=== PATIENT | female | born 1990 | race Caucasian/White ===

== ENCOUNTER → 2017-11-01 14:43 | Outpatient (CLI) | payer BC, SELFPAY ==
[2017-11-01 16:22] LABS: Free T4 (Free Thyroxine) 1.02 ng/dl (0.76-1.46); Thyroid Stimulating Hormone 1.06 uIU/ml (0.358-3.740)
[2017-11-03 11:16] LABS: Thyroid Peroxidase Antibodies 102 IU/mL (0-34)
[2017-11-03 15:24] LABS: Thyroglobulin Level <1.0 IU/mL (0.0-0.9)
== END ==
PROVIDERS: Visit Provider Otolaryngology
DX: E06.3 Autoimmune thyroiditis (principal)
CPT/HCPCS: 36415; 84439; 84443; 86376; 86800

== ENCOUNTER → 2019-01-02 10:34 | Outpatient (POV) | payer BC, SELFPAY ==
[2019-01-02 13:29] LABS: Free T4 (Free Thyroxine) 1.29 ng/dl (0.76-1.46)
[2019-01-02 14:40] LABS: Thyroid Stimulating Hormone 0.01 uIU/ml (0.358-3.740)
[2019-01-03 11:14] LABS: Thyroid Peroxidase Antibodies 53 IU/mL (0-34)
[2019-01-04 04:25] LABS: Thyroglobulin Level 2.9 IU/mL (0.0-0.9)
== END ==
PROVIDERS: Visit Provider Otolaryngology
DX: E06.3 Autoimmune thyroiditis (principal)
CPT/HCPCS: 36415; 84439; 84443; 86376; 86800

== ENCOUNTER → 2019-10-12 16:10 | Outpatient (CLI) | payer BC, SELFPAY ==
[2019-10-12 19:00] LABS: Free T4 (Free Thyroxine) 1.71 ng/dl (0.78-2.19)
[2019-10-12 19:15] LABS: Thyroid Stimulating Hormone 0.03 uIU/mL (0.465-4.68)
[2019-10-14 11:47] LABS: Thyroid Peroxidase Antibodies 59 IU/mL (0-34)
[2019-10-15 16:15] LABS: Thyroglobulin Level 4.5 IU/mL (0.0-0.9)
== END ==
PROVIDERS: Visit Provider Otolaryngology
DX: E06.3 Autoimmune thyroiditis (principal)
CPT/HCPCS: 36415; 84439; 84443; 86376; 86800

== ENCOUNTER 2019-12-14 15:45 | Emergency (ER) | payer BC, SELFPAY ==
[2019-12-14 15:46] VITALS: BP 128/88; PULSE 67; RESP 17; TEMP 37.2; O2SAT 100; BMI 27.4
--- NOTE | 2019-12-14 15:46 | XR_ITS ---
PROCEDURE: XR CHEST PORTABLE CLINICAL HISTORY: CHEST PRESSURE COMPARISON: No exams were available for comparison FINDINGS: The cardiomediastinal silhouette and pulmonary vascularity are within normal limits. The lungs are clear without infiltrates, suspicious nodules, or pleural effusions. No acute bony abnormalities. IMPRESSION: No acute findings. Dictated by: Kodak Pimentel MD 12/14/2019 16:11 Electronically signed by Kodak Pimentel MD in [place] 12/14/2019 16:11
--- NOTE | 2019-12-14 15:50 | ECG_ITS ---
APPROVED REPORT Exam: Resting ECG HR:57 bpm ECG Measurements Heart Rate 57 AXES CO 134 P 48 QRSd 86 QRS 52 QT 446 T 43 QTc 434 <Conclusion> Sinus bradycardia with marked sinus arrhythmia Late r wave progression Abnormal ECG Electronically signed by : Matt Parker, 12/14/2019 20:15:51
--- NOTE | 2019-12-14 16:03 | CT_ITS ---
PROCEDURE: CT ANGIO CHEST CLINCIAL INDICATION: soa, pressure in chest COMPARISON: XR CHEST PORTABLE from 12/14/2019 TECHNIQUE: IV Contrast: 70ML OPTIRAY 350 Axial images obtained with sagittal and coronal reformats. All CT scans at the facility use one or more dose reduction, viz: automated exposure control, ma/kV adjustment per patient size (including targeted exams where dose is matched to indication, i.e. head), or iterative reconstruction technique. FINDINGS: HEART AND MEDIASTINAL STRUCTURES: No evidence of aortic aneurysm dissection or pulmonary embolus. There is increased soft tissue density within the anterior mediastinum. This most likely is related residual thymic tissue however the borders are rounded anteriorly as opposed to triangle-shaped. Follow-up is suggested to confirm resolution or stability. There are few small nodes in the axilla. LUNGS AND PLEURAL SPACES: Unremarkable. BONY STRUCTURES: No acute bony abnormalities apparent. UPPER ABDOMEN: Unremarkable. ADDITIONAL FINDINGS: No other significant abnormalities. IMPRESSION: 1. No acute finding. No evidence of pulmonary embolus. 2. Soft tissue density within the anterior mediastinum at 3.4 by 2 cm probably related to residual thymic tissue somewhat more prominent than expected with rounded anterior margins. Recommend six-month follow-up to confirm stability. Dictated by: Kodak Pimentel MD 12/14/2019 17:45 Electronically signed by Kodak Pimentel MD in [place] 12/14/2019 17:45
[2019-12-14 16:11] LABS: Basophils % 0.6 % (0.1-2.0); Eosinophils # 0.4 K/mm3 (0.0-0.4); Eosinophils % 4.4 % (0.1-12.0); Hematocrit 38.6 % (37.0-47.0); Hemoglobin 13.7 g/dL (12.2-16.2); Lymphocytes # 3.8 K/mm3 (0.7-4.5); Lymphocytes % 48.2 % (10-50); Mean Corpuscular HGB Conc 35.5 g/dL (31.8-35.4); Mean Corpuscular Hemoglobin 29.9 pg (27.0-31.2); Mean Corpuscular Volume 84.2 fl (81-99); Mean Platelet Volume 8.1 fl (7.4-10.4); Monocytes # 0.3 K/mm3 (0.1-1.0); Monocytes % 3.9 % (1.7-9.3); Neutrophils # 3.4 K/mm3 (1.8-7.8); Neutrophils % 42.9 % (37.0-80.0); Platelet Count 179 K/mm3 (142-424); Red Blood Count 4.59 M/mm3 (4.20-5.40); Red Cell Distribution Width 12.8 % (11.5-17.5)
[2019-12-14 16:44] LABS: Chloride 103 mmol/L (98-107); Sodium 139 mmol/L (136-145)
[2019-12-14 16:45] LABS: Potassium 3.7 mmoL/L (3.5-5.1)
[2019-12-14 16:47] LABS: Blood Urea Nitrogen 16 mg/dl (7-17); Creatinine Clearance Estimated 129 mL/min (50-200); Estimated Glomerular Filt Rate 86 ml/min (>60); GFR (African American) 104 ML/MIN (>60)
[2019-12-14 16:48] LABS: Anion Gap 13.7 mEq/L (5-15); Calcium 9.7 mg/dl (8.4-10.2); Carbon Dioxide 26 mmol/L (22.0-30.0); Glucose 99 mg/dl (74-100)
[2019-12-14 16:52] LABS: HCG Qualitative, Serum Negative (Negative)
[2019-12-14 17:02] LABS: Troponin I < 0.01 ng/ml (0.00-0.034)
[2019-12-14 17:05] LABS: T4 (Thyroxine) 9.1 ug/dl (5.53-11.0)
[2019-12-14 17:19] LABS: Thyroid Stimulating Hormone 0.73 uIU/mL (0.465-4.68)
[2019-12-14 18:07] VITALS: BP 123/89; PULSE 60; O2SAT 98
--- NOTE | 2019-12-14 18:30 | HMH.EDSOB ---
ED Disposition Clinical Impression: Shortness of breath Disposition: Home, Self-Care Condition on Discharge: Good Prescriptions: Azithromycin 250 mg PO DAILY 5 Days #6 tab Transmission Status: Pending to [facility] dexAMETHasone [Dexamethasone] 2 mg PO DAILY 7 Days #10 tab Transmission Status: Pending to [facility] Referrals: Debbie Newby PA [Primary Care Provider] - - Critical Care Critical Care Time: No Attestation: On 12/14/19, the high probability of a clinically significant, sudden or life threatening deterioration of the following system(s) required my full and direct attention, intervention and personal management. The time I documented below is in addition to time spent performing reported procedures but includes the following listed in this critical care notation. Medical Decision Making - Medical Records Medical records reviewed: Yes: I reviewed the patient's medical records. - Prosper Inquiry Pt receiving controlled substance: No Vital Signs: 12/14/19 15:46 12/14/19 18:07 Temperature 99 F Temperature Source Oral Pulse Rate [Right] 67 60 Respiratory Rate 17 Blood Pressure [Right Arm] 128/88 123/89 Blood Pressure Mean [Right Arm] 101 100 Blood Pressure Source [Right Arm] Automatic Cuff Blood Pressure Position [Right Arm] Supine 02 Sat by Pulse Oximetry 100 98 Oxygen Delivery Method Room Air - Lab Data Lab results reviewed: Yes: I reviewed the patient's lab results. Lab Results 12/14/19 16:00: WBC 8.0, RBC 4.59, Hgb 13.7, Hct 38.6, MCV 84.2, MCH 29.9, MCHC 35.5 H, RDW 12.8, Plt Count 179, MPV 8.1, Neut % (Auto) 42.9, Lymph % (Auto) 48.2, [place] % (Auto) 3.9, Eos % (Auto) 4.4, Baso % (Auto) 0.6, Neut # (Auto) 3.4, Lymph # (Auto) 3.8, [place] # (Auto) 0.3, Eos # (Auto) 0.4, Baso # (Auto) 0.0 12/14/19 16:33: Sodium 139, Potassium 3.7, Chloride 103, Carbon Dioxide 26, Anion Gap 13.7, BUN 16, Creatinine 0.80, Estimated Creat Clear 129, Estimated GFR 86, Est GFR ( Amer) 104, Glucose 99, Calcium 9.7, Troponin I < 0.01, TSH 0.73, Thyroxine (T4) 9.1 12/14/19 16:33: Serum HCG, Qual Negative Result diagrams: 12/14/19 16:00 12/14/19 16:33 Orders (Tests/Meds): ORDERS Category Date Time Status SARS-CoV-2, KARINA ([place]) Stat Lab 12/14/19 16:33 Received Troponin I Q3H Lab 12/14/19 19:00 Ordered Troponin I Q3H Lab 12/14/19 22:00 Ordered - CT Data CT Scan: Chest Time Received: 18:[address] Reviewed: Yes: I have viewed the radiologist's interpretation Preliminary Findings: Normal/NAD - ECG Data Tracing #1 I reviewed this ECG and interpreted as documented below: Normal Sinus Rhythm: Yes Resp/SOB HPI - General Chief Complaint: Shortness of Breath/Dyspnea Stated Complaint: CHEST PRESSURE Time Seen by Provider: 12/14/19 18:00 Mode of Arrival: Ambulatory Source of Information: Patient Limitations: No Limitations Description of Symptoms (Recalled from ER Triage Doc. by RN): Pt c/o chest pressure and soa that has been going for 2 days, denies fever. - History of Present Illness 29-year-old female presents the emergency department complaint of some shortness of breath that started about 2 days ago. Patient denies any fevers or coughs. But she does say she has a little bit of chest pain associated with the shortness of breath. She states that the pain is there with deep inhalations and increasing intrathoracic pressure. Patient states she is been out in public but has not been around any sick people that she realizes. Patient denies any loss of smell or taste she denies any arthralgias or myalgias and she denies any cough with the shortness of breath. - Related Data Home Medications Medication Instructions Recorded Confirmed levothyroxine 175 mcg tablet 175 mcg PO ONCE 11/21/17 Previous Rx's Medication Instructions Recorded Azithromycin [Z-Michel 250mg Tab*] 250 mg PO UD DOSE PK #6 tab 08/21/19 Azithromycin 250 mg PO DAILY 5 Days #6
[2019-12-14 18:47] VITALS: BP 116/85; PULSE 69; RESP 16; TEMP 36.8; O2SAT 96
[2019-12-16 08:31] LABS: Covid-19 Nasal PCR Sendout UK Not Detected
== END 2019-12-14 18:49 | disposition home or self-care (01) ==
PROVIDERS: Emergency Provider Family Medicine; PCP Physician Assistant
DX: R07.9 Chest pain, unspecified (principal); R06.02 Shortness of breath; Z88.2 Allergy status to sulfonamides
CPT/HCPCS: 71045; 71275; 80048; 84436; 84443; 84484; 84703; 85025; 93005; 96374; 99283; 99284; Q9967; U0003

== ENCOUNTER 2020-03-25 18:13 | Emergency (ER) | payer BC, SELFPAY ==
[2020-03-25 19:08] VITALS: BP 126/87; PULSE 66; RESP 18; TEMP 36.7; O2SAT 99; BMI 30.4
[2020-03-25 19:10] LABS: Apearance,Urine Clear (Clear); Color,Urine Yellow (Yellow); Protein,Urine Negative (Negative)
[2020-03-25 19:11] LABS: Bilirubin,Urine Negative (Negative); Blood, Urine Trace (Negative); Glucose,Urine (UA) Negative (Negative); Ketones,Urine Negative (Negative); UTC Leukocyte Esterase,Urine Trace (Negative); UTC Nitrate,Urine Negative (Negative); Urobilinogen,Urine 0.2 EU/dl (0.2)
--- NOTE | 2020-03-25 19:15 | HMH.EDUTC ---
[facility] Disposition Clinical Impression: UTI (urinary tract infection) Qualifiers: Urinary tract infection type: site unspecified Hematuria presence: with hematuria Qualified Code(s): N39.0 - Urinary tract infection, site not specified; R31.9 - Hematuria, unspecified Disposition: Home, Self-Care Condition on Discharge: Good Instructions: Urinary Tract Infection, DI for Urinary Tract Infection (UTI), Cephalexin, Phenazopyridine Additional Instructions: *Increase fluids. Water not Soda or Tea *Start antibiotic immediately and be sure to take as ordered for the FULL length of time although you should start to see improvement over the next 48 hours *Pyridium as needed Remember this medication will turn your urine Lenore. This is normal but it will stain what ever it gets on *You should not use Pyridium for more than 48 hours. If so , follow up with your primary physician to review urine culture and ensure that antibiotic is adequate for infection *Be SURE to follow up anytime for new or worsening symptoms with your family doctor. AND in 48 hours for urine culture results with your family doctor, if you do not have a doctor then you may call back to the [facility] for urine culture results and further treatment. We do recommend that you choose and establish care with a Primary Care Physician. AND follow up with them in 10-14 days to repeat UA to ensure infection is resolved and blood no longer present *Be sure to let your PCP know that we sent urine cultures from the [facility] so they can follow up to ensure that you area the on the correct antibiotic Call your doctor office and make appointment for 48 hours (2 days from today) to follow up and get the results of your urine culture and further treatment Return if needed Straight to ER if any life threatening symptoms Prescriptions: cephALEXin [cephALEXin 500mg capsule*] 500 mg PO BID 10 Days #20 cap Transmission Status: Pending to [facility] Phenazopyridine HCl [Pyridium 200mg Tablet] 200 pow PO TID #6 tab Transmission Status: Pending to [facility] Referrals: Debbie Newby PA [Primary Care Provider] - As needed Time of Disposition: 19:26 Medical Decision Making - Prosper Inquiry Pt receiving controlled substance: No Prosper was queried for this patient: No Vital Signs: 03/25/20 19:08 Temperature 98.1 F Temperature Source Oral Pulse Rate [Radial] 66 Respiratory Rate 18 Blood Pressure [Right Arm] 126/87 Blood Pressure Mean [Right Arm] 100 Blood Pressure Source [Right Arm] Automatic Cuff Blood Pressure Position [Right Arm] Sitting 02 Sat by Pulse Oximetry 99 Oxygen Delivery Method Room Air - Lab Data Lab results reviewed: Yes: I reviewed the patient's lab results. Lab Results 03/25/20 19:08: Urine Color Yellow, Urine Appearance Clear, Urine pH 8.0, Ur Specific [place] 1.020, Urine Protein Negative, Urine Glucose (UA) Negative, Urine Ketones Negative, Urine Blood Trace, Urine Nitrate Negative, Urine Bilirubin Negative, Urine Urobilinogen 0.2, Ur Leukocyte Esterase Trace Orders (Tests/Meds): ORDERS Category Date Time Status Urine Culture Routine Micro 03/25/20 19:00 Received Medical Decision Narrative: denies [facility] HPI - General Stated complaint: Blood in urine, stabbing pain Time Seen by Provider: 03/25/20 19:15 Mode of Arrival: Ambulatory Source of Information: Patient Limitations: No Limitations Description of Symptoms (Recalled from Triage Doc. by RN): possible uti HEENT Symptoms (Recalled from RN notes): No Resp Symptoms (Recalled from RN notes): No Skin Symptoms (Recalled from RN notes): No MS Symptoms (Recalled from RN notes): No Functional Status (Recalled from RN notes): wnl - History of Present Illness Provider Complaint: Patient states that she thinks she may have a UTI States that she has been having burning with urination and feeling of urgency and frequency States that it has continued to get worse over the las
[2020-03-25 19:40] VITALS: BP 126/87; PULSE 66; RESP 18; TEMP 36.7; O2SAT 99
== END 2020-03-25 19:41 | disposition home or self-care (01) ==
PROVIDERS: Emergency Provider Nurse Practitioner; PCP Physician Assistant
DX: N30.01 Acute cystitis with hematuria (principal); Z88.7 Allergy status to serum and vaccine
CPT/HCPCS: 81003; 87086; 99201

== ENCOUNTER → 2020-03-27 14:22 | Outpatient (CLI) | payer BC, SELFPAY ==
[2020-03-27 16:05] LABS: Free T4 (Free Thyroxine) 0.98 ng/dl (0.78-2.19)
[2020-03-27 16:20] LABS: Thyroid Stimulating Hormone 0.36 uIU/mL (0.465-4.68)
[2020-03-29 17:48] LABS: Thyroid Peroxidase Antibodies 32 IU/mL (0-34)
[2020-03-31 18:09] LABS: Thyroglobulin Level 2.5 IU/mL (0.0-0.9)
== END ==
PROVIDERS: Visit Provider Otolaryngology
DX: E06.3 Autoimmune thyroiditis (principal)
CPT/HCPCS: 36415; 84439; 84443; 86376; 86800

== ENCOUNTER → 2020-10-31 13:42 | Outpatient (CLI) | payer BC, SELFPAY ==
--- NOTE | 2020-10-31 13:47 | XR_ITS ---
PROCEDURE: XR ANKLE LT MIN 3V CLINICAL INDICATION: LT ANKLE PAIN,UNSPECIFIED CHRONOCITY COMPARISON: No exams were available for comparison FINDINGS: No fracture or dislocation. No lytic or blastic change. There is normal mineralization. The joint spaces are well-preserved. No significant degenerative/arthritic changes. No erosive changes evident. Other findings:None. IMPRESSION: No acute findings. Dictated by: Kodak Pimentel MD 10/31/2020 14:04 Kodak Pimentel MD in [place] 10/31/2020 14:04
== END ==
PROVIDERS: PCP Physician Assistant; Visit Provider Nurse Practitioner
DX: M25.572 Pain in left ankle and joints of left foot (principal)
CPT/HCPCS: 73610

== ENCOUNTER → 2021-01-01 12:25 | Outpatient (CLI) | payer BC, SELFPAY ==
[2021-01-02 15:13] LABS: Thyroglobulin Level <1.0 IU/mL (0.0-0.9)
== END ==
PROVIDERS: Visit Provider Otolaryngology
DX: E06.3 Autoimmune thyroiditis (principal)
CPT/HCPCS: 36415; 86800

== ENCOUNTER → 2021-02-17 14:40 | Outpatient (CLI) | payer BC, SELFPAY ==
[2021-02-17 17:08] LABS: Free T4 (Free Thyroxine) 0.54 ng/dl (0.78-2.19)
[2021-02-19 10:21] LABS: Thyroid Peroxidase Antibodies 30 IU/mL (0-34)
[2021-02-19 21:52] LABS: Thyroglobulin Level 2.2 IU/mL (0.0-0.9)
== END ==
PROVIDERS: Visit Provider Otolaryngology
DX: E06.3 Autoimmune thyroiditis (principal)
CPT/HCPCS: 36415; 84439; 84443; 86376; 86800

== ENCOUNTER → 2021-08-13 16:55 | Outpatient (CLI) | payer BC, SELFPAY ==
[2021-08-13 18:18] LABS: Free T4 (Free Thyroxine) 1.23 ng/dl (0.78-2.19)
[2021-08-13 18:32] LABS: Thyroid Stimulating Hormone 0.07 uIU/mL (0.465-4.68)
== END ==
PROVIDERS: Visit Provider Physician Assistant
DX: E03.9 Hypothyroidism, unspecified (principal)
CPT/HCPCS: 36415; 84439; 84443

== ENCOUNTER 2022-07-23 15:48 | Emergency (ER) | payer BC, SELFPAY ==
--- NOTE | 2022-07-23 15:51 | EXP.UTC ---
Discharge Plan Disposition Patient Disposition: Home, Self-Care Condition: Good Prescriptions Prescriptions: New ofloxacin 0.3 % drops See Rx Instructions .ROUTE .COMPLEX Qty: 5 0RF Rx Instructions: put 2 drps into affected eye every 2 h x 2 days, then 1 drp 4 times/day days 3-7 No Action levothyroxine 175 mcg tablet 175 mcg PO ONCE venlafaxine 75 mg capsule,extended release 24hr 75 mg PO DAILY Label Comments: TAKE 1 CAPSULE BY MOUTH ONCE DAILY Referrals Follow up/Referrals: Debbie Newby PA [Primary Care Provider] - See instructions Activity Restrictions/Add. Instructions Additional Instructions/Restrictions: Use the eye drops as directed. Strict hand washing in the house hold, because conjunctivitis is very contagious. Follow up with your regular doctor. GO TO THE ER FOR ANY WORSENING SYMPTOMS OR CONCERNS Clinical Impressions Clinical Impression: Conjunctivitis of right eye Instructions Patient Instructions: How to Instill Eye Drops Discharge ED Provider: Lino Britton [facility] General Stated complaint: poss pink eye Time Seen by Provider: 07/23/22 15:51 History of Present Illness Provider Complaint: She states that for the past 2 days she has had right eye irritation, redness and matting with yellowish drainage. Related Data Home Medications Medication Instructions Recorded Confirmed levothyroxine 175 mcg tablet 175 mcg PO ONCE . 11/21/17 07/23/22 venlafaxine 75 mg capsule,extended 75 mg PO DAILY . 07/23/22 07/23/22 release 24 hr Previous Rx's Medication Instructions Recorded ofloxacin 0.3 % eye drops See Rx Instructions ophthalmic 07/23/22 (eye) .COMPLEX #5 mL Allergies Allergy/AdvReac Type Severity Reaction Status Date / Time NSAIDS (Non-Steroidal Allergy Severe THROAT Verified 07/23/22 16:07 Anti-Inflamma SWELLING [NSAIDS (NON-STEROIDAL ANTI-INFLAMMA] [facility] Disclaimer: The information contained in this section may have been updated after the patient was seen, as this information can be updated by other users. Social History Smoking Status: Never smoker alcohol intake: never current occupational status: other Travel in the last 8 weeks: None ROS Obtained: Yes All systems reviewed & no additional complaints except as documented Constitutional Constitutional: Denies chills and Denies fever(s) Eyes Eyes: Reports eye discharge ENT Ears, Nose, Mouth, and Throat: Denies dizziness, Denies otalgia and Denies sore throat Cardiovascular Cardiovascular: Denies chest pain Respiratory Respiratory: Denies shortness of breath, Denies chest congestion, Denies cough, Denies stridor and Denies wheezing Gastrointestinal Gastrointestingal: Denies nausea or vomiting Musculoskeletal Musculoskeletal: Reports system reviewed and no additional complaints, except as documented and Denies arthralgias Integumentary/Breasts Skin/Breast: Denies rash Neurologic Neurologic: Denies dizziness and Denies paresthesias Allergic/Immunologic Allergic/Immunologic: Denies wheezing Physical Exam General General appearance: alert and in no apparent distress Head Head exam: atraumatic, normocephalic and normal inspection Eye Eye exam: Present PERRL, EOMI, conjunctival redness, conjunctival injection and discharge ENT ENT exam: Present normal exam, normal oropharynx, mucous membranes moist, TM's normal bilaterally and normal external ear exam Neck Neck exam: Present normal inspection, full ROM and trachea midline; Absent meningismus or lymphadenopathy Chest Chest inspection: Present normal inspection and symmetric chest wall rise; Absent tenderness Respiratory Respiratory exam: Present normal lung sounds bilaterally; Absent respiratory distress Cardiovascular Cardiovascular exam: Present regular rate and normal rhythm; Absent JVD Abdominal Exam Abdominal exam: Present soft and nor
[2022-07-23 15:55] VITALS: BP 134/77; PULSE 96; RESP 20; TEMP 36.9; O2SAT 98; BMI 31.9
[2022-07-23 16:36] VITALS: BP 134/77; PULSE 96; RESP 20; TEMP 36.9; O2SAT 98
== END 2022-07-23 16:35 | disposition home or self-care (01) ==
PROVIDERS: Emergency Provider Nurse Practitioner Family; PCP Physician Assistant
DX: H10.9 Unspecified conjunctivitis (principal)
CPT/HCPCS: 99212; 99213; G0463

== ENCOUNTER 2023-03-17 08:35 | Emergency (ER) | payer BC, SELFPAY ==
[2023-03-17 08:36] VITALS: BP 130/75; PULSE 72; RESP 18; TEMP 36.9; O2SAT 98; BMI 32.1
[2023-03-17 09:02] LABS: Apearance,Urine Cloudy (Clear); Color,Urine Yellow (Yellow)
[2023-03-17 09:03] LABS: Bilirubin,Urine Negative (Negative); Blood, Urine Trace (Negative); Glucose,Urine (UA) Negative (Negative); Ketones,Urine Negative (Negative); Protein,Urine Negative (Negative)
[2023-03-17 09:05] LABS: UTC Leukocyte Esterase,Urine 1+ (Negative); UTC Nitrate,Urine Negative (Negative); Urobilinogen,Urine 1 EU/dl (0.2)
--- NOTE | 2023-03-17 09:17 | EXP.UTC ---
Discharge Plan Disposition Patient Disposition: Home, Self-Care Condition: Good Prescriptions Prescriptions: New nitrofurantoin monohyd/m-cryst [Macrobid] 100 mg capsule 100 mg PO Q12H 5 Days Qty: 10 0RF Rx Instructions: must administer with a meal/food phenazopyridine [Pyridium] 200 mg tablet 200 mg PO Q8H 2 Days Qty: 6 0RF No Action levothyroxine 175 mcg tablet 175 mcg PO ONCE venlafaxine 75 mg capsule,extended release 24hr 75 mg PO DAILY Patient Comments: TAKE 1 CAPSULE BY MOUTH ONCE DAILY ofloxacin 0.3 % drops See Rx Instructions .ROUTE .COMPLEX Qty: 5 0RF Rx Instructions: put 2 drps into affected eye every 2 h x 2 days, then 1 drp 4 times/day days 3-7 Referrals Follow up/Referrals: Debbie Newby PA [Primary Care Provider] - See instructions Activity Restrictions/Add. Instructions Additional Instructions/Restrictions: *Increase fluids. Water not Soda or Tea *Start antibiotic immediately and be sure to take as ordered for the FULL length of time although you should start to see improvement over the next 48 hours *Pyridium as needed Remember this medication will turn your urine . This is normal but it will stain what ever it gets on *You should not use Pyridium for more than 48 hours. If so , follow up with your primary physician to review urine culture and ensure that antibiotic is adequate for infection *Be SURE to follow up anytime for new or worsening symptoms with your family doctor. AND in 48 hours for urine culture results with your family doctor, if you do not have a doctor then you may call back to the [facility] for urine culture results and further treatment. We do recommend that you choose and establish care with a Primary Care Physician. ?AND follow up with them ?in 10-14 days to repeat UA to ensure infection is resolved and blood no longer present *Be sure to let your PCP know that we sent urine cultures from the [facility] so they can follow up to ensure that you area the on the correct antibiotic Call your doctor office and make appointment for 48 hours (2 days from today) ?to follow up and get the results of your urine culture and further treatment Clinical Impressions Clinical Impression: UTI (urinary tract infection) Qualifiers: Urinary tract infection type: site unspecified Hematuria presence: with hematuria Qualified Code(s): N39.0 - Urinary tract infection, site not specified; R31.9 - Hematuria, unspecified Instructions Patient Instructions: DI for Urinary Tract Infection (UTI), Nitrofurantoin, Phenazopyridine Discharge ED Provider: Lucy Rojas [facility] [place] [place] General Stated complaint: suspected uti, painful urination Mode of Arrival: Ambulatory Source of Information: Patient Limitations: No Limitations Time Seen by Provider: 03/17/23 09:18 Description of Symptoms (Recalled from Triage Doc. by RN): Patient reports pain, burning and pressure with urination since yesterday. HEENT Symptoms (Recalled from RN notes): No Resp Symptoms (Recalled from RN notes): No Skin Symptoms (Recalled from RN notes): No MS Symptoms (Recalled from RN notes): No Functional Status (Recalled from RN notes): wnl History of Present Illness Provider Complaint: Patient states that she started yesterday with burning with urination and feeling of urgency and frequency like she has had before with UTI States that she was up and down most of the night with it so this morning she came in to get it checked Related Data Home Medications Medication Instructions Recorded Confirmed levothyroxine 175 mcg tablet 175 mcg PO ONCE . 11/21/17 07/23/22 venlafaxine 75 mg capsule,extended 75 mg PO DAILY . 07/23/22 07/23/22 release 24 hr Previous Rx's Medication Instructions Recorded ofloxacin 0.3 % eye drops See Rx Instructions ophthalmic 07/23/22 (eye) .COMPLEX #5 mL nitrofurantoin 100 mg PO Q12H 5 days #10 caps 03/17/23 monohydrate/macrocrystals 100 mg capsule (Macrobid) phe
[2023-03-17 09:25] VITALS: BP 130/75; PULSE 70; RESP 18; TEMP 36.9; O2SAT 98
== END 2023-03-17 09:26 | disposition home or self-care (01) ==
PROVIDERS: Emergency Provider Nurse Practitioner; PCP Physician Assistant
DX: N39.0 Urinary tract infection, site not specified (principal); R31.9 Hematuria, unspecified
CPT/HCPCS: 81003; 87086; 99212; 99214; G0463

== ENCOUNTER 2023-06-09 14:50 | Outpatient (CLI) | payer BC, SELFPAY ==
[2023-06-09 15:24] LABS: Basophils # 0.1 K/mm3 (0-0.2); Basophils % 0.4 % (0.1-2.0); Eosinophils # 0.1 K/mm3 (0.0-0.4); Eosinophils % 0.4 % (0.1-12.0); Hematocrit 44.5 % (37.0-47.0); Hemoglobin 15.1 g/dL (12.2-16.2); Lymphocytes # 2.2 K/mm3 (0.7-4.5); Lymphocytes % 17.8 % (10-50); Mean Corpuscular HGB Conc 33.9 g/dL (31.8-35.4); Mean Corpuscular Hemoglobin 29.6 pg (27.0-31.2); Mean Corpuscular Volume 87.4 fl (81-99); Monocytes # 0.5 K/mm3 (0.1-1.0); Monocytes % 3.9 % (1.7-9.3); Neutrophils # 9.7 K/mm3 (1.8-7.8); Neutrophils % 77.5 % (37.0-80.0); Platelet Count 339 K/mm3 (142-424); Red Blood Count 5.09 M/mm3 (4.20-5.40); Red Cell Distribution Width 13.5 % (11.5-17.5); White Blood Count 12.5 K/mm3 (4.8-10.8)
[2023-06-09 16:12] LABS: Chloride 102 mmol/L (98-107); Potassium 4.4 mmoL/L (3.5-5.1); Sodium 137 mmol/L (136-145)
[2023-06-09 16:14] LABS: Blood Urea Nitrogen 15 mg/dl (7-17)
[2023-06-09 16:15] LABS: Alanine Aminotransferase 56 U/L (12-78); Albumin Level 5.2 g/dl (3.5-5.0); Albumin/Globulin Ratio 1.4 (1.1-1.8); Alkaline Phosphatase 67 U/L (38-126); Anion Gap 16.4 mEq/L (5-15); Aspartate Amino Transferase 57 U/L (14-36); Bilirubin,Total 0.9 mg/dl (0.2-1.3); Calcium 10.3 mg/dl (8.4-10.2); Carbon Dioxide 23 mmol/L (22.0-30.0); Estimated Glomerular Filt Rate 65 ml/min (>60); GFR (African American) 79 ML/MIN (>60); Globulin 3.7 g/dL (1.3-3.2); Glucose 92 mg/dl (74-100); Total Protein,Serum 8.9 g/dl (6.3-8.2)
[2023-06-09 16:24] LABS: Erythrocyte Sedimentation Rate 6 mm/hr (0-20)
[2023-06-09 16:32] LABS: Free T4 (Free Thyroxine) 0.15 ng/dl (0.78-2.19)
== END 2023-06-09 23:59 ==
LOC: LAB 14:51
PROVIDERS: PCP Physician Assistant; Visit Provider Physician Assistant
DX: E03.9 Hypothyroidism, unspecified (principal); R51.9 Headache, unspecified
CPT/HCPCS: 36415; 80053; 84439; 84443; 85025; 85651

== ENCOUNTER 2023-06-14 22:23 | Emergency (ER) | payer BC, SELFPAY ==
[2023-06-14 22:24] VITALS: BP 137/92; PULSE 63; RESP 24; TEMP 36.4; O2SAT 99; BMI 32.5
--- NOTE | 2023-06-14 22:32 | ECG_ITS ---
APPROVED REPORT Exam: Resting ECG HR:70 bpm ECG Measurements Heart Rate 70 AXES OH 150 P 51 QRSd 94 QRS 62 QT 409 T 5 QTc 430 Conclusion SINUS RHYTHM NONSPECIFIC ST & T-WAVE ABNORMALITY BORDERLINE ECG UNCONFIRMED REPORT Electronically signed by : Matt Parker MD 06/15/2023 08:35:53
[2023-06-14 23:00] VITALS: BP 135/79; PULSE 61; RESP 20; O2SAT 98
[2023-06-14] MEDS: LORazepam 2MG/ML VIAL 0.5 MG IV (23:00)
[2023-06-14] MEDS: 0.9 % SODIUM CHLORIDE 1000ML 1,000 ML 999 ML IV (23:00)
--- NOTE | 2023-06-14 23:03 | ED_ITS ---
Discharge Plan Disposition Patient Disposition: Home, Self-Care Prescriptions Prescriptions: No Action levothyroxine 175 mcg tablet 175 mcg PO ONCE Referrals Follow up/Referrals: Debbie Newby PA [Primary Care Provider] - See instructions Activity Restrictions/Add. Instructions Additional Instructions/Restrictions: Please follow-up with your primary care provider. [facility] develop any new or worsening symptoms or become concerned for your health. Clinical Impressions Clinical Impression: Abnormal laboratory test result, Feeling tired Discharge ED Provider: Isaak Nowak General Adult HPI <Isaak Nowak MD - Last Filed: 06/14/23 23:08> General Chief complaint: Recheck/Abnormal Lab/Rx Stated complaint: RAMAN, Lethargic, thyroid level 270 Time Seen by Provider: 06/14/23 22:26 Mode of Arrival: Wheelchair Source of Information: Patient Limitations: No Limitations Description of Symptoms (Recalled from ER Triage Doc. by RN): Patient has been off her Synthriod for about 6 weeks, started back on it 4-5 days ago. Patient concerned that her TSH was elevated and she has been having headaches and generally not feeling well. History of Present Illness HPI narrative: 32-year-old female history of hypothyroidism presenting with multiple complaints. Patient states that she stopped taking her thyroid medication about 6 weeks prior. Started taking it about 4 days prior to this visit. Saw her family doctor and TSH was 270, T4 was low at 0.15. They sent these results to a family member who is in medicine and they were concerned that thyroid studies that high may kill her, so they told her to come to the emergency department. Patient states that she feels like her neck is more swollen than usual, denies meningismus, fevers or chills. She has been breaking out in cold sweats, but no objective fevers measured. No lower extremity edema. No confusion, but patient does state that she has been having memory issues and migraines on the right side of her head. Has not taken any medications for these. Related Data Home Medications Medication Instructions Recorded Confirmed levothyroxine 175 mcg tablet 175 mcg PO ONCE . 11/21/17 06/14/23 Allergies Allergy/AdvReac Type Severity Reaction Status Date / Time NSAIDS (Non-Steroidal Allergy Severe THROAT Verified 07/23/22 16:07 Anti-Inflamma SWELLING [NSAIDS (NON-STEROIDAL ANTI-INFLAMMA] PFSH <Isaak Nowak MD - Last Filed: 06/14/23 23:08> [facility] Disclaimer: The information contained in this section may have been updated after the patient was seen, as this information can be updated by other users. Social History (Updated 07/23/22 @ 20:11 by Lino Britton APRN) Smoking Status: Never smoker alcohol intake: never current occupational status: other Travel in the last 8 weeks: None <Isaak Nowak MD - Last Filed: 06/14/23 23:08> ROS Obtained: Yes All systems reviewed & no additional complaints except as documented Physical Exam <Isaak Nowak MD - Last Filed: 06/14/23 23:08> General General appearance: alert, in no apparent distress and anxious Head Head exam: atraumatic and normocephalic Eye Eye exam: Present normal appearance, PERRL and EOMI ENT ENT exam: Present mucous membranes moist Neck Neck exam: Present normal inspection, full ROM and trachea midline Respiratory Respiratory exam: Present normal lung sounds bilaterally; Absent respiratory distress, wheezes, stridor, accessory muscle use or prolonged expiratory phase Cardiovascular Cardiovascular exam: Present regular rate and normal rhythm Abdominal Exam Abdominal exam: Present soft; Absent distention, tenderness, guarding, rebound or rigidity Extremities Exam Extremities exam: Absent edema Neurological Exam Neurological exam: Present alert, oriented X3, CN II-XII intact and normal gait; Absent motor sensory deficit Psychiatric Psychiatric exam: Present anxious Skin Skin exam: Present warm, dry and diaphoresis; Absent erythema Medical Decision Making <Isaak Nowak MD - Last Filed: 06/14/23 23:08> Medical Records Medical records reviewed: Yes I reviewed the patient's medical records. [place] Inquiry Pt receiving controlled substance: No [place] was queried for this patient: No Vital Signs: 06/14/23 22:24 06/14/23 23:00 06/14/23 23:31 Temperature 97.6 F Temperature Source Oral Pulse Rate 61 64 Pulse Rate [Radial] 63 Respiratory Rate 24 20 18 Blood Pressure 135/79 108/57 L Blood Pressure [Left Arm] 137/92 H Blood Pressure Mean 97 74 Blood Pressure Mean [Left Arm] 107 Blood Pressure Source [Left Arm] Automatic Cuff Blood Pressure Position [Left Arm] Sitting 02 Sat by Pulse Oximetry 99 98 98 Oxygen Delivery Method Room Air Room Air Room Air 06/15/23 00:01 06/15/23 00:30 06/15/23 01:01 Temperature Temperature Source Pulse Rate 54 L 55 L 44 L Pulse Rate [Radial] Respiratory Rate 12 13 15 Blood Pressure 99/58 L 105/68 L 87/48 L Blood Pressure [Left Arm] Blood Pressure Mean 61 Blood Pressure Mean [Left Arm] Blood Pressure Source [Left Arm] Blood Pressure Position [Left Arm] 02 Sat by Pulse Oximetry 95 97 96 Oxygen Delivery Method Room Air Room Air Room Air 06/15/23 01:10 Temperature Temperature Source Pulse Rate 46 L Pulse Rate [Radial] Respiratory Rate 17 Blood Pressure 103/56 L Blood Pressure [Left Arm] Blood Pressure Mean 71 Blood Pressure Mean [Left Arm] Blood Pressure Source [Left Arm] Blood Pressure Position [Left Arm] 02 Sat by Pulse Oximetry 97 Oxygen Delivery Method Room Air Lab Data Lab Results 06/14/23 22:40: WBC 13.8 H, RBC 5.35, Hgb 15.9, Hct 47.1 H, MCV 88.0, MCH 29.6, MCHC 33.6, RDW 13.7, Plt Count 361, MPV 8.7, Neut % (Auto) 66.3, Lymph % (Auto) 27.7, [place] % (Auto) 4.1, Eos % (Auto) 1.1, Baso % (Auto) 0.8, Neut # (Auto) 9.2 H, Lymph # (Auto) 3.8, [place] # (Auto) 0.6, Eos # (Auto) 0.2, Baso # (Auto) 0.1, Sodium 139, Potassium 4.6, Chloride 101, Carbon Dioxide 24, Anion Gap 18.6 H, BUN 20 H, Creatinine 1.00, Estimated Creat Clear 123, Estimated GFR 65, Est GFR ( Amer) 79, Glucose 113 H, Calcium 10.1, Total Bilirubin 0.6, AST 62 H, ALT 58, Alkaline Phosphatase 58, Troponin I < 0.01, NT-Pro-B Natriuret Pep 87.4, Total Protein 9.7 H, Albumin 5.3 H, Globulin 4.4 H, Albumin/Globulin Ratio 1.2, TSH 168.00 H, Thyroxine (T4) 6.1, HCG, Quant < 2 06/14/23 23:46: Urine Color Yellow, Urine Appearance Clear, Urine pH 7.0, Ur Specific [place] 1.010, Urine Protein Negative, Urine Glucose (UA) Negative, Urine Ketones Negative, Urine Blood Negative, Urine Nitrate Negative, Urine Bilirubin Negative, Urine Urobilinogen 0.2, Ur Leukocyte Esterase 1+ A, Urine RBC None, Urine WBC 3-5, Ur Squamous Epith Cells 10-20, Urine Bacteria None 06/14/23 22:40 06/14/23 22:40 Orders (Tests/Meds): ED MEDICATIONS Generic Name Dose Route Start Last Admin Trade Name Freq PRN Reason Stop Dose Admin Sodium Chloride 10 ml 06/14/23 22:53 Sodium Chloride 0.9% 10ml Vial IV 07/14/23 22:52 NEEDED PRN to Dilute Lorazepam inj Discontinued Medications Generic Name Dose Route Start Last Admin Trade Name Freq PRN Reason Stop Dose Admin Sodium Chloride 1,000 mls @ 999 mls/hr 06/14/23 22:53 06/14/23 23:00 Sod Chlor 0.9% 1000ml Bag IV 06/14/23 23:53 999 mls/hr .Q1H1M ONE Administration Lorazepam 0.5 mg 06/14/23 22:53 06/14/23 23:00 Lorazepam 2mg/Ml Vial IV 06/14/23 22:54 0.5 mg ONCE ONE Administration ORDERS Category Date Time Status Brain Natriuretic Peptide Stat Lab 06/14/23 22:40 Completed Complete Blood Count Auto Diff Stat Lab 06/14/23 22:40 Completed Comprehensive Metabolic Panel Stat Lab 06/14/23 22:40 Completed HCG,Quantitative Stat Lab 06/14/23 22:40 Completed Rapid PCR Covid and Flu A/B Stat Lab 06/14/23 23:07 Ordered T4 (Thyroxine) Stat Lab 06/14/23 22:40 Completed TSH [Thyroid Stimulating Hormone] Stat Lab 06/14/23 22:40 Completed Troponin I Q3H Lab 06/15/23 02:00 Ordered Troponin I Q3H Lab 06/15/23 05:00 Ordered Troponin I Stat Lab 06/14/23 22:40 Completed Urinalysis and Microscopic Stat Lab 06/14/23 23:46 Completed Urine Culture Stat Micro 06/14/23 23:46 Received Medical Decision Narrative: 32-year-old female history of hypothyroidism presenting with multiple complaints. Patient states that she stopped taking her thyroid medication about 6 weeks prior. Started taking it about 4 days prior to this visit. Saw her family doctor and TSH was 270, T4 was low at 0.15. They sent these results to a family member who is in medicine and they were concerned that thyroid studies that high may kill her, so they told her to come to the emergency department. Patient states that she feels like her neck is more swollen than usual, denies meningismus, fevers or chills. She has been breaking out in cold sweats, but no objective fevers measured. No lower extremity edema. No confusion, but patient does state that she has been having memory issues and migraines on the right side of her head. Has not taken any medications for these. History was obtained via conversation with patient and . On arrival, patient hemodynamically stable, alert, oriented x4, appropriate, GCS 15, moving all extremities spontaneously, pupils equal and reactive to light. Full physical exam performed and significant for anxious woman who is in no acute distress. Nontachycardic, nontachypneic. Afebrile. Patient is diaphoretic and tremulous, but states this is similar for her anxiety and panic attacks. Lungs clear to auscultation bilaterally without focal breath sounds, cardiac exam otherwise normal. Neurologically intact. Differential includes anxiety, intoxication, withdrawal, thyrotoxicosis, viral syndrome, metabolic, endocrinologic, among others. Patient was given fluid bolus, 0.5 mg Ativan for symptomatic management and correction of underlying abnormalities. Laboratory workup pending at time of handoff to oncoming physician. <Pierre Lopez MD - Last Filed: 06/15/23 01:23> Vital Signs: 06/14/23 22:24 06/14/23 23:00 06/14/23 23:31 Temperature 97.6 F Temperature Source Oral Pulse Rate 61 64 Pulse Rate [Radial] 63 Respiratory Rate 24 20 18 Blood Pressure 135/79 108/57 L Blood Pressure [Left Arm] 137/92 H Blood Pressure Mean 97 74 Blood Pressure Mean [Left Arm] 107 Blood Pressure Source [Left Arm] Automatic Cuff Blood Pressure Position [Left Arm] Sitting 02 Sat by Pulse Oximetry 99 98 98 Oxygen Delivery Method Room Air Room Air Room Air 06/15/23 00:01 06/15/23 00:30 06/15/23 01:01 Temperature Temperature Source Pulse Rate 54 L 55 L 44 L Pulse Rate [Radial] Respiratory Rate 12 13 15 Blood Pressure 99/58 L 105/68 L 87/48 L Blood Pressure [Left Arm] Blood Pressure Mean 61 Blood Pressure Mean [Left Arm] Blood Pressure Source [Left Arm] Blood Pressure Position [Left Arm] 02 Sat by Pulse Oximetry 95 97 96 Oxygen Delivery Method Room Air Room Air Room Air 06/15/23 01:10 Temperature Temperature Source Pulse Rate 46 L Pulse Rate [Radial] Respiratory Rate 17 Blood Pressure 103/56 L Blood Pressure [Left Arm] Blood Pressure Mean 71 Blood Pressure Mean [Left Arm] Blood Pressure Source [Left Arm] Blood Pressure Position [Left Arm] 02 Sat by Pulse Oximetry 97 Oxygen Delivery Method Room Air Lab Data Lab Results 06/14/23 22:40: WBC 13.8 H, RBC 5.35, Hgb 15.9, Hct 47.1 H, MCV 88.0, MCH 29.6, MCHC 33.6, RDW 13.7, Plt Count 361, MPV 8.7, Neut % (Auto) 66.3, Lymph % (Auto) 27.7, [place] % (Auto) 4.1, Eos % (Auto) 1.1, Baso % (Auto) 0.8, Neut # (Auto) 9.2 H, Lymph # (Auto) 3.8, [place] # (Auto) 0.6, Eos # (Auto) 0.2, Baso # (Auto) 0.1, Sodium 139, Potassium 4.6, Chloride 101, Carbon Dioxide 24, Anion Gap 18.6 H, BUN 20 H, Creatinine 1.00, Estimated Creat Clear 123, Estimated GFR 65, Est GFR ( Amer) 79, Glucose 113 H, Calcium 10.1, Total Bilirubin 0.6, AST 62 H, ALT 58, Alkaline Phosphatase 58, Troponin I < 0.01, NT-Pro-B Natriuret Pep 87.4, Total Protein 9.7 H, Albumin 5.3 H, Globulin 4.4 H, Albumin/Globulin Ratio 1.2, TSH 168.00 H, Thyroxine (T4) 6.1, HCG, Quant < 2 06/14/23 23:46: Urine Color Yellow, Urine Appearance Clear, Urine pH 7.0, Ur Specific [place] 1.010, Urine Protein Negative, Urine Glucose (UA) Negative, Urine Ketones Negative, Urine Blood Negative, Urine Nitrate Negative, Urine Bilirubin Negative, Urine Urobilinogen 0.2, Ur Leukocyte Esterase 1+ A, Urine RBC None, Urine WBC 3-5, Ur Squamous Epith Cells 10-20, Urine Bacteria None Orders (Tests/Meds): ED MEDICATIONS Generic Name Dose Route Start Last Admin Trade Name Frechristie PRN Reason Stop Dose Admin Sodium Chloride 10 ml 06/14/23 22:53 Sodium Chloride 0.9% 10ml Vial IV 07/14/23 22:52 NEEDED PRN to Dilute Lorazepam inj Discontinued Medications Generic Name Dose Route Start Last Admin Trade Name Freq PRN Reason Stop Dose Admin Sodium Chloride 1,000 mls @ 999 mls/hr 06/14/23 22:53 06/14/23 23:00 Sod Chlor 0.9% 1000ml Bag IV 06/14/23 23:53 999 mls/hr .Q1H1M ONE Administration Lorazepam 0.5 mg 06/14/23 22:53 06/14/23 23:00 Lorazepam 2mg/Ml Vial IV 06/14/23 22:54 0.5 mg ONCE ONE Administration ORDERS Category Date Time Status Brain Natriuretic Peptide Stat Lab 06/14/23 22:40 Completed Complete Blood Count Auto Diff Stat Lab 06/14/23 22:40 Completed Comprehensive Metabolic Panel Stat Lab 06/14/23 22:40 Completed HCG,Quantitative Stat Lab 06/14/23 22:40 Completed Rapid PCR Covid and Flu A/B Stat Lab 06/14/23 23:07 Ordered T4 (Thyroxine) Stat Lab 06/14/23 22:40 Completed TSH [Thyroid Stimulating Hormone] Stat Lab 06/14/23 22:40 Completed Troponin I Q3H Lab 06/15/23 02:00 Ordered Troponin I Q3H Lab 06/15/23 05:00 Ordered Troponin I Stat Lab 06/14/23 22:40 Completed Urinalysis and Microscopic Stat Lab 06/14/23 23:46 Completed Urine Culture Stat Micro 06/14/23 23:46 Received Medical Decision Narrative: 32-year-old female history of hypothyroidism presenting with multiple complaints. Patient states that she stopped taking her thyroid medication about 6 weeks prior. Started taking it about 4 days prior to this visit. Saw her family doctor and TSH was 270, T4 was low at 0.15. They sent these results to a family member who is in medicine and they were concerned that thyroid studies that high may kill her, so they told her to come to the emergency department. Patient states that she feels like her neck is more swollen than usual, denies meningismus, fevers or chills. She has been breaking out in cold sweats, but no objective fevers measured. No lower extremity edema. No confusion, but patient does state that she has been having memory issues and migraines on the right side of her head. Has not taken any medications for these. History was obtained via conversation with patient and . On arrival, patient hemodynamically stable, alert, oriented x4, appropriate, GCS 15, moving all extremities spontaneously, pupils equal and reactive to light. Full physical exam performed and significant for anxious woman who is in no acute distress. Nontachycardic, nontachypneic. Afebrile. Patient is diaphoretic and tremulous, but states this is similar for her anxiety and panic attacks. Lungs clear to auscultation bilaterally without focal breath sounds, cardiac exam otherwise normal. Neurologically intact. Differential includes anxiety, intoxication, withdrawal, thyrotoxicosis, viral syndrome, metabolic, endocrinologic, among others. Patient was given fluid bolus, 0.5 mg Ativan for symptomatic management and co rrection of underlying abnormalities. Laboratory workup pending at time of handoff to oncoming physician. John DAVID: I assumed care of the patient at the time of handoff from the prior provider. On reassessment patient reports symptomatic improvement. 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 TSH returned 168, T4 of 6.1. These labs are reassuring and show appropriate trend of thyroid studies after recent reinitiation of levothyroxine. Excellent discussion had with patient and family regarding symptoms. Patient discharged in stable condition with instructions to follow-up with PCP. Critical Care <Isaak Nowak MD - Last Filed: 06/14/23 23:08> Critical Care Time Critical Care Time: No
[2023-06-14 23:12] LABS: Alanine Aminotransferase 58 U/L (12-78); Albumin Level 5.3 g/dl (3.5-5.0); Albumin/Globulin Ratio 1.2 (1.1-1.8); Alkaline Phosphatase 58 U/L (38-126); Anion Gap 18.6 mEq/L (5-15); Aspartate Amino Transferase 62 U/L (14-36); Bilirubin,Total 0.6 mg/dl (0.2-1.3); Blood Urea Nitrogen 20 mg/dl (7-17); Calcium 10.1 mg/dl (8.4-10.2); Carbon Dioxide 24 mmol/L (22.0-30.0); Chloride 101 mmol/L (98-107); Creatinine Clearance Estimated 123 mL/min (50-200); Estimated Glomerular Filt Rate 65 ml/min (>60); GFR (African American) 79 ML/MIN (>60); Globulin 4.4 g/dL (1.3-3.2); Glucose 113 mg/dl (74-100); Potassium 4.6 mmoL/L (3.5-5.1); Sodium 139 mmol/L (136-145); Total Protein,Serum 9.7 g/dl (6.3-8.2)
[2023-06-14 23:15] LABS: Basophils # 0.1 K/mm3 (0-0.2); Basophils % 0.8 % (0.1-2.0); Eosinophils # 0.2 K/mm3 (0.0-0.4); Eosinophils % 1.1 % (0.1-12.0); Hematocrit 47.1 % (37.0-47.0); Hemoglobin 15.9 g/dL (12.2-16.2); Lymphocytes # 3.8 K/mm3 (0.7-4.5); Lymphocytes % 27.7 % (10-50); Mean Corpuscular HGB Conc 33.6 g/dL (31.8-35.4); Mean Corpuscular Hemoglobin 29.6 pg (27.0-31.2); Mean Platelet Volume 8.7 fl (7.4-10.4); Monocytes # 0.6 K/mm3 (0.1-1.0); Monocytes % 4.1 % (1.7-9.3); Neutrophils # 9.2 K/mm3 (1.8-7.8); Neutrophils % 66.3 % (37.0-80.0); Platelet Count 361 K/mm3 (142-424); Red Blood Count 5.35 M/mm3 (4.20-5.40); Red Cell Distribution Width 13.7 % (11.5-17.5); White Blood Count 13.8 K/mm3 (4.8-10.8)
[2023-06-14 23:31] VITALS: BP 108/57; PULSE 64; RESP 18; O2SAT 98
[2023-06-14 23:37] LABS: NT Pro Brain Natriuretic Pep. 87.4 pg/mL (0-125)
[2023-06-14 23:44] LABS: T4 (Thyroxine) 6.1 ug/dl (5.53-11.0)
[2023-06-14 23:45] LABS: HCG,Quantitative < 2 mIU/ml (0-5.42); Troponin I < 0.01 ng/ml (0.00-0.034)
[2023-06-14 23:54] LABS: Microscopic, Urine URINE MICROSCOPIC (MICROSCOPIC)
[2023-06-14 23:56] LABS: Appearance,Urine CLEAR (Clear); Bilirubin,Urine Negative (Negative); Blood, Urine Negative (Negative); Color,Urine YELLOW (Yellow); Glucose,Urine (UA) Negative (Negative); Ketones,Urine Negative (Negative); Leukocyte Esterase,Urine 1+ (Negative); Nitrate,Urine Negative (Negative); Protein,Urine Negative (Negative); Urobilinogen,Urine 0.2 EU/dl (0.2)
[2023-06-15 00:01] VITALS: BP 99/58; PULSE 54; RESP 12; O2SAT 95
[2023-06-15 00:30] VITALS: BP 105/68; PULSE 55; RESP 13; O2SAT 97
[2023-06-15 01:01] VITALS: BP 87/48; PULSE 44; RESP 15; O2SAT 96
[2023-06-15 01:10] VITALS: BP 103/56; PULSE 46; RESP 17; O2SAT 97
[2023-06-15 01:25] VITALS: BP 103/56; PULSE 41; RESP 14; TEMP 36.7; O2SAT 97
--- NOTE | 2023-06-17 08:17 | PC.NURSE ---
per urine sample is contaminated with no further action
== END 2023-06-15 01:28 | disposition home or self-care (01) ==
PROVIDERS: Emergency Provider Emergency Medicine; PCP Physician Assistant
DX: R51.9 Headache, unspecified (principal); E03.9 Hypothyroidism, unspecified; F41.1 Generalized anxiety disorder; R53.83 Other fatigue
CPT/HCPCS: 80053; 81001; 83880; 84436; 84443; 84484; 84702; 85025; 87086; 93005; 96361; 96374; 99284

== ENCOUNTER 2023-06-21 10:53 | Outpatient (CLI) | payer BC, SELFPAY ==
--- NOTE | 2023-06-21 10:59 | US_ITS ---
FINAL REPORT CLINICAL HISTORY: THYROMEGALY FINDINGS: THYROID ULTRASOUND The right lobe of the thyroid measures 2.6 x 1.0 x 0.8 cm. The left lobe of the thyroid measures 3.4 x 0.9 x 1.0 cm. The parenchyma is heterogeneous. No dominant mass is seen. IMPRESSION: Small heterogeneous thyroid which may be sequela of prior thyroiditis. No dominant thyroid nodule. Reviewed, Interpreted and Dictated by Lalo Burton MD Transcribed by Marcellus Ramos Authenticated and [facility]
== END 2023-06-21 23:59 ==
LOC: RAD 10:54
PROVIDERS: PCP Physician Assistant; Visit Provider Physician Assistant
DX: E01.0 Iodine-deficiency related diffuse (endemic) goiter (principal)
CPT/HCPCS: 76536